=== PATIENT | female | born 1995 | race Asian ===

== ENCOUNTER 2018-04-23 17:37 | Emergency (ER) | payer MEDICAID ==
[~2018-04-23] VITALS: Ht 149.9 cm; Wt 49.0 kg
[2018-04-23 18:16] LABS: BASOPHILS # (AUTO) 0.04 x10^3/uL (0-0.1); BASOPHILS % (AUTO) 0 % (0-1); EOSINOPHILS # (AUTO) 0.08 x10^3/uL (0-0.4); EOSINOPHILS % (AUTO) 1 % (1-7); LYMPHOCYTES # (AUTO) 2.53 x10^3/uL (1-3.4); LYMPHOCYTES % (AUTO) 25 % (22-44); MD NO; MEAN CORPUSCULAR HEMOGLOBIN 29.6 pg (27.0-34.8); MEAN CORPUSCULAR HGB CONC 33.7 g/dL (32.4-35.8); MEAN CORPUSCULAR VOLUME 87.9 fL (80-100); MEAN PLATELET VOLUME 8.2 fL (7.4-10.4); MONOCYTES # (AUTO) 0.88 x10^3/uL (0.2-0.8); MONOCYTES % (AUTO) 9 % (2-9); NEUTROPHILS # (AUTO) 6.51 x10^3/uL (1.8-6.8); NEUTROPHILS % (AUTO) 65 % (42-75); PLATELET COUNT 288 x10^3/uL (130-400); RED BLOOD COUNT 5.33 x10^6/uL (3.82-5.3); RED CELL DISTRIBUTION WIDTH 13.1 % (9.6-15.2)
[2018-04-23 18:27] LABS: ALBUMIN 4.2 g/dL (3.4-5.0); ANION GAP 7 mmol/L (5-15); CALCIUM 9.8 mg/dL (8.5-10.1); CHLORIDE 106 mmol/L (98-107); CREATININE 0.75 mg/dL (0.55-1.02)
[2018-04-23 18:31] LABS: FREE T4 (FREE THYROXINE) 1.16 ng/dL (0.76-1.46); TROPONIN I 0.016 ng/mL (0.000-0.045)
[2018-04-23 19:42] VITALS: BP 122/78
== END 2018-04-23 19:53 | disposition home or self-care (01) ==
LOC: ED 19:45
DX: R07.89 Other chest pain (principal); R94.31 Abnormal electrocardiogram [ECG] [EKG]
CPT/HCPCS: 36415; 71045; 80048; 82040; 83735; 84439; 84443; 84484; 84703; 85025; 85379; 93005; 99285